=== PATIENT | male | born 1965 | race Caucasian/White ===

== ENCOUNTER 2019-02-18 09:00 | Emergency (ER) | payer SELFPAY ==
[~2019-02-18] VITALS: Ht 162.6 cm; Wt 68.0 kg
[2019-02-18 09:03] VITALS: Ht 162.6 cm; Wt 68.0 kg
[2019-02-18] MEDS ORDERED: morphine 4 MG/ML VIAL IV STA (09:16)
[2019-02-18] MEDS ORDERED: ONDANSETRON 4 MG INJ IV STA (09:16)
[2019-02-18] MEDS ORDERED: CIPROFLOXACIN 500 MG TAB PO ONE (11:00)
[2019-02-18] MEDS ORDERED: CIPR500T4 PO (11:04)
[2019-02-18] MEDS ORDERED: IBUP-1542 PO (11:04)
[2019-02-18] MEDS ORDERED: ONDA4TAB14 PO (11:04)
[2019-02-18 12:02] VITALS: BP 109/87; PULSE 94; RESP 18
--- NOTE | 2019-02-18 12:49 | ERD ---
ER Documentation Chief Complaint Chief Complaint rt lower quadrant pain x 2 days , sent by pmd to r/o appy HPI Patient is a 53-year-old male with no medical problems who presents for abdominal pain. The patient was sent from an urgent care for rule out appendicitis. The patient has right lower quadrant abdominal pain which started yesterday. It is constant and sharp in nature. The patient has no fevers. The patient has had nausea and vomiting. Upon review of old medical records this is the patient's first visit to the emergency department. ROS All systems reviewed and are negative except as per history of present illness. Medications Home Meds Active Scripts Ibuprofen* (Motrin*) 600 Mg Tab, 600 MG PO Q6H PRN for PAIN AND OR ELEVATED TEMP, #30 TAB Prov:PANKAJ REYES MD 02/18/19 Ondansetron (Ondansetron Odt) 4 Mg Tab.rapdis, 4 MG PO Q6H PRN for NAUSEA AND/OR VOMITING, #10 TAB Prov:PANKAJ REYES MD 02/18/19 Ciprofloxacin Hcl* (Ciprofloxacin Hcl*) 500 Mg Tablet, 500 MG PO BID for 7 Days, TAB Prov:PANKAJ REYES MD 02/18/19 Allergies Allergies: Coded Allergies: No Known Allergy (Unverified , 02/18/19) PMhx/Soc History of Surgery: Yes (hernia repair) Anesthesia Reaction: No Hx Neurological Disorder: No Hx Respiratory Disorders: No Hx Cardiac Disorders: No Hx Psychiatric Problems: No Hx Miscellaneous Medical Probl: No Hx Alcohol Use: No Hx Substance Use: No Hx Tobacco Use: No Smoking Status: Never smoker FmHx Family History: No diabetes Physical Exam Vitals Vital Signs Date Temp Pulse Resp B/P (MAP) Pulse Ox O2 O2 Flow FiO2 Time Delivery Rate 02/18/19 94 18 109/87 98 Room Air 12:02 (94) 02/18/19 98.1 112 18 116/76 99 09:03 (89) Physical Exam Const: No acute distress Head: Atraumatic Eyes: Normal Conjunctiva ENT: Normal External Ears, Nose and Mouth. Neck: Full range of motion. No meningismus. Resp: Clear to auscultation bilaterally Cardio: Regular rate and rhythm, no murmurs Abd: Soft, right lower quadrant tenderness to palpation without rebound or guarding Skin: No petechiae or rashes Back: No midline or flank tenderness Ext: No cyanosis, or edema Neur: Awake and alert Psych: Normal Mood and Affect Result Diagram: 02/18/19 1020 02/18/19 1020 Results 24 hrs Laboratory Tests Test 02/18/19 10:20 White Blood Count 9.3 10^3/ul Red Blood Count 5.06 10^6/ul Hemoglobin 15.4 g/dl Hematocrit 42.6 % Mean Corpuscular Volume 84.2 fl Mean Corpuscular Hemoglobin 30.4 pg Mean Corpuscular Hemoglobin Concent 36.2 g/dl Red Cell Distribution Width 13.2 % Platelet Count 194 10^3/UL Mean Platelet Volume 9.5 fl Immature Granulocytes % 0.200 % Neutrophils % 74.6 % Lymphocytes % 16.4 % Monocytes % 8.3 % Eosinophils % 0.1 % Basophils % 0.4 % Nucleated Red Blood Cells % 0.0 /100WBC Immature Granulocytes # 0.020 10^3/ul Neutrophils # 6.9 10^3/ul Lymphocytes # 1.5 10^3/ul Monocytes # 0.8 10^3/ul Eosinophils # 0.0 10^3/ul Basophils # 0.0 10^3/ul Nucleated Red Blood Cells # 0.0 10^3/ul Urine Color YELLOW Urine Clarity CLEAR Urine pH 6.0 Urine Specific [place] 1.020 Urine Ketones NEGATIVE mg/dL Urine Nitrite NEGATIVE mg/dL Urine Bilirubin NEGATIVE mg/dL Urine Urobilinogen NEGATIVE mg/dL Urine Leukocyte Esterase NEGATIVE Darryl/ul Urine Microscopic RBC 72 /HPF Urine Microscopic WBC 32 /HPF Urine Bacteria FEW /HPF Urine Mucus FEW /HPF Urine Hemoglobin 2+ mg/dL Urine Glucose NEGATIVE mg/dL Urine Total Protein NEGATIVE mg/dl Sodium Level 138 mmol/L Potassium Level 3.9 mmol/L Chloride Level 102 mmol/L Carbon Dioxide Level 24 mmol/L Anion Gap 12 Blood Urea Nitrogen 20 mg/dl Creatinine 1.41 mg/dl Est Glomerular Filtrat Rate mL/min 52 mL/min Glucose Level 125 mg/dl Calcium Level 9.5 mg/dl Total Bilirubin 0.8 mg/dl Direct Bilirubin 0.00 mg/dl Indirect Bilirubin 0.8 mg/dl Aspartate Amino Transf (AST/SGOT) 35 IU/L Alanine Aminotransferase (ALT/SGPT) 30 IU/L Alkaline Phosphatase 86 IU/L Total Protein 7.7 g/dl Albumin 4.5 g/dl Globulin 3.20 g/dl Albumin/Globulin Ratio 1.40 Lipase 99 U/L Current Medications Medications Dose Sig/Theresa Start Time Status Last (Trade) Ordered Route PRN Stop Time Admin Dose Reason Admin Morphine 4 mg ONCE STAT 02/18/19 DC Sulfate IV 09:16 02/18/19 (morphine) 09:17 Ondansetron 4 mg ONCE STAT 02/18/19 DC HCl (Zofran IV 09:16 02/18/19 Inj) 09:17 500 mg ONCE ONCE 02/18/19 DC 02/18/19 Ciprofloxacin PO 11:00 02/18/19 10:41 (Cipro) 11:01 Procedures/MDM CT abdomen pelvis shows no appendicitis per radiology. Patient is a 53-year-old male who presents with abdominal pain. The patient was found to have possible pyelonephritis. CT scan shows no appendicitis. At this point I doubt appendicitis, cholecystitis, pancreatitis, or bowel obstruction. The patient will be discharged with a prescription for ibuprofen, Zofran, and Cipro twice a day for 1 week. The first dose was given in the emergency department. The patient can return for any worsening symptoms. He should follow-up with a local clinics within 24-48 hours for reevaluation as he does not currently have a primary doctor. Departure Diagnosis: Primary Impression: Pyelonephritis Additional Impression: Abdominal pain Abdominal location: right lower quadrant Qualified Codes: R10.31 - Right lower quadrant pain Condition: Fair Patient Instructions: Abdominal Pain, Pyelonephritis, Male (Adult) [facility] Usted se faustin hecho un examen mdico de control que le indica que no est en reuben condicin que requiera tratamiento urgente en el Departamento de Emergencia. Un estudio ms profundo y el tratamiento de monge condicin pueden esperar sin ningn riesgo hasta que usted sea atendida/o en el consultorio de monge mdico o reuben clnica. Es responsabilidad suya arreglar reuben juan pablo para el seguimiento del belle. MANEJO DE CONDICIONES NO URGENTES EN EL FUTURO 1) Si usted tiene un mdico de atencin primaria: Usted debera llamar a monge mdico de atencin primaria antes de venir al departamento de emergencia. Despus de las horas de consultorio, monge doctor o monge asociado/a est disponible por telfono. El mdico o enfermero de jennifer en el servicio telefnico puede asesorarle por lauren medio para atender el problema, o belle contrario se puede programar reuben juan pablo. 2) Si usted no tiene un mdico de atencin primaria: Llame al mdico o clnica de referencia que aparece abajo franco las horas de consultorio para hacer reuben juan pablo para que le vean. CLINICAS: [place] [phone] [facility] [phone] [facility] [place] [phone] [facility] [place] [phone] [facility]. [place] [address] [phone] [facility]. [phone] Additional Instructions: Llame al doctor MAANA y giovanni reuben JUAN PABLO PARA DENTRO DE 1-2 PAK.Dgale a la secretaria que nosotros le instruimos hacer esta juan pablo.Avise o llame si monge condicin se empeora antes de la juan pablo. Regresa aqui si peor o no mejor. PANKAJ REYES MD Feb 18, 2019 12:49
== END 2019-02-18 12:32 | disposition home or self-care (01) ==
LOC: E/R 09:00
DX: N12 Tubulo-interstitial nephritis, not specified as acute or chronic (principal)
CPT/HCPCS: 36415; 74176; 80053; 81001; 83690; 85025